=== PATIENT | male | born 1965 | race Caucasian/White ===

== ENCOUNTER 2020-02-15 12:42 | Inpatient (IN) ==
[2020-02-15] MEDS ORDERED: 0.9 % Sodium Chloride 1,000 ML IVC ONE (13:11)
[2020-02-15] MEDS ORDERED: Dexamethasone 4 MG/ML VIAL IVP ONE (13:11)
[2020-02-15 13:30] LABS: Hematocrit 45.1 % (37.5-50.1); Hemoglobin 15.1 g/dL (12.9-16.9); Mean Corpuscular HGB Conc 33.5 g/dL (31.6-35.5); Mean Corpuscular Hemoglobin 29.5 pg (28.0-33.3); Mean Corpuscular Volume 88.3 fL (83.0-100.0); Platelet Count 249 K/mcL (140-400); Red Blood Count 5.11 M/mcL (4.19-5.50); Red Cell Distribution Width 13.1 % (11.5-14.5); White Blood Count 4.5 K/mcL (4.3-11.1)
[2020-02-15] MEDS ORDERED: cefTRIAXone 1,000 MG in Water for inj. (sterile) 10 ML IVP ONE (13:34)
[2020-02-15 13:49] LABS: BUN/Creatinine Ratio 9 (6-26); Blood Urea Nitrogen 7 mg/dL (6-20); Calcium 8.9 mg/dL (8.6-10.3); Carbon Dioxide 26 mEq/L (23-29); Chloride 98 mEq/L (98-107); Glucose 147 mg/dL (70-105); Osmolality,Calculated 281 (280-300); Potassium 3.3 mEq/L (3.5-5.1); Sodium 135 mEq/L (136-145); eGFR For African Americans > 60 (> 60); eGFR For Non-African Americans > 60 (> 60)
[2020-02-15] MEDS ORDERED: Azithromycin 500 MG in 0.9 % Sodium Chloride 250 ML IVPB ONE (14:00)
[2020-02-15 14:08] LABS: Lymphocytes # 0.8 K/mcL (0.6-4.6); Monocytes # 0.4 K/mcL (0.0-1.3); Neutrophils # 3.3 K/mcL (1.6-8.9)
[2020-02-15 14:09] LABS: Large Platelets Present (Not Present); Platelet Estimate Normal (Normal)
[2020-02-15] MEDS ORDERED: Naloxone 0.4 MG/ML INJ IVP PRN (14:39)
[2020-02-15] MEDS ORDERED: Ondansetron 4 MG/2 ML VIAL IVP PRN (14:39)
[2020-02-15 16:03] LABS: C-Reactive Protein 177 mg/L (Less than 10); Lactate Dehydrogenase 525 Units/L (140-271)
[2020-02-15 16:36] LABS: Ferritin > 1500 ng/mL (20-250)
[2020-02-16 05:26] LABS: Basophils % 0.3 %; Hematocrit 43.2 % (37.5-50.1); Hemoglobin 14.8 g/dL (12.9-16.9); Immature Granulocytes % 1.7 % (0-4); Lymphocytes # 0.7 K/mcL (0.6-4.6); Lymphocytes % 11.7 %; Mean Corpuscular HGB Conc 34.3 g/dL (31.6-35.5); Mean Corpuscular Hemoglobin 30.3 pg (28.0-33.3); Mean Corpuscular Volume 88.5 fL (83.0-100.0); Monocytes # 0.2 K/mcL (0.0-1.3); Monocytes % 4.1 %; Platelet Count 269 K/mcL (140-400); Red Blood Count 4.88 M/mcL (4.19-5.50); Red Cell Distribution Width 13.2 % (11.5-14.5); Segmented Neutrophils % 82.2 %; White Blood Count 5.9 K/mcL (4.3-11.1)
[2020-02-16 05:27] LABS: Neutrophils # 4.9 K/mcL (1.6-8.9)
[2020-02-16 05:40] LABS: BUN/Creatinine Ratio 13 (6-26); Blood Urea Nitrogen 8 mg/dL (6-20); Calcium 8.3 mg/dL (8.6-10.3); Carbon Dioxide 22 mEq/L (23-29); Chloride 101 mEq/L (98-107); Glucose 139 mg/dL (70-105); Osmolality,Calculated 281 (280-300); Potassium 3.7 mEq/L (3.5-5.1); Sodium 135 mEq/L (136-145); eGFR For African Americans > 60 (> 60); eGFR For Non-African Americans > 60 (> 60)
[2020-02-16 05:58] LABS: Platelet Estimate Normal (Normal)
[2020-02-16] MEDS ORDERED: Dexamethasone 4 MG/ML VIAL IVP SCH (08:00)
[2020-02-16 08:30] LABS: Alanine Aminotransferase 81 Units/L (7-52); Albumin 3.7 g/dL (3.5-5.7); Albumin/Globulin Ratio 1.2 (1.1-2.2); Alkaline Phosphatase 56 Units/L (34-104); Aspartate Amino Transferase 58 Units/L (13-39); Bilirubin,Direct 0.3 mg/dL (0.0-0.2); Bilirubin,Indirect 0.3 mg/dL (0.0-1.0); Bilirubin,Total 0.6 mg/dL (0.3-1.0); Globulin 3.1 g/dL (2.4-3.5); Total Protein 6.8 g/dL (6.4-8.9)
[2020-02-16] MEDS ORDERED: levoFLOXacin 750 MG TABLET PO SCH (09:00)
[2020-02-16] MEDS ORDERED: Furosemide 20 MG/2 ML VIAL IVP SCH (09:00)
[2020-02-16] MEDS ORDERED: *HR* Enoxaparin 40 MG/0.4 ML SYRINGE SQ SCH (12:53)
[2020-02-16] MEDS: cefTRIAXone 2,000 MG in Water for inj. (sterile) 20 ML IVP SCH (15:19)
[2020-02-16] MEDS: Azithromycin 500 MG in 0.9 % Sodium Chloride 250 ML IVPB SCH (15:20)
[2020-02-16] MEDS: Ipratropium 1 PUFF INHALER IH SCH ×4 (16:09→23:36)
[2020-02-16] MEDS ORDERED: Remdesivir 200 MG in 0.9 % Sodium Chloride 100 ML IVPB ONE (17:00)
[2020-02-16] MEDS: Furosemide 40 MG/4 ML VIAL IVP SCH (20:20)
[2020-02-17] MEDS: Ipratropium 1 PUFF INHALER IH SCH ×7 (03:26→23:58)
[2020-02-17 05:04] LABS: Basophils % 0.4 %; Hematocrit 42.4 % (37.5-50.1); Hemoglobin 14.1 g/dL (12.9-16.9); Immature Granulocytes % 1.9 % (0-4); Mean Corpuscular HGB Conc 33.3 g/dL (31.6-35.5); Mean Corpuscular Hemoglobin 28.9 pg (28.0-33.3); Mean Corpuscular Volume 86.9 fL (83.0-100.0); Mean Platelet Volume 9.6 fL (9.4-12.4); Monocytes # 0.3 K/mcL (0.0-1.3); Monocytes % 3.6 %; Platelet Count 312 K/mcL (140-400); Red Blood Count 4.88 M/mcL (4.19-5.50); Red Cell Distribution Width 13.2 % (11.5-14.5); Segmented Neutrophils % 81.1 %; White Blood Count 7.6 K/mcL (4.3-11.1)
[2020-02-17 05:24] LABS: Alanine Aminotransferase 118 Units/L (7-52); Albumin 3.5 g/dL (3.5-5.7); Albumin/Globulin Ratio 1.1 (1.1-2.2); Alkaline Phosphatase 56 Units/L (34-104); Aspartate Amino Transferase 61 Units/L (13-39); BUN/Creatinine Ratio 16 (6-26); Bilirubin,Total 0.7 mg/dL (0.3-1.0); Blood Urea Nitrogen 12 mg/dL (6-20); Calcium 8.4 mg/dL (8.6-10.3); Carbon Dioxide 24 mEq/L (23-29); Chloride 99 mEq/L (98-107); Globulin 3.3 g/dL (2.4-3.5); Glucose 134 mg/dL (70-105); Osmolality,Calculated 284 (280-300); Potassium 3.2 mEq/L (3.5-5.1); Sodium 136 mEq/L (136-145); Total Protein 6.8 g/dL (6.4-8.9); eGFR For African Americans > 60 (> 60); eGFR For Non-African Americans > 60 (> 60)
[2020-02-17 05:35] LABS: INR 1.1; Prothrombin Time 13.2 Seconds (9.4-12.1)
[2020-02-17 05:44] LABS: Neutrophils # 6.2 K/mcL (1.6-8.9)
[2020-02-17] MEDS: *HR* Enoxaparin 40 MG/0.4 ML SYRINGE SQ SCH ×2 (06:21→16:50)
[2020-02-17 06:44] LABS: Platelet Estimate Normal (Normal)
[2020-02-17] MEDS: Dexamethasone 4 MG/ML VIAL IVP SCH (08:41)
[2020-02-17] MEDS: Furosemide 40 MG/4 ML VIAL IVP SCH (08:42)
[2020-02-17] MEDS: cefTRIAXone 2,000 MG in Water for inj. (sterile) 20 ML IVP SCH (14:36)
[2020-02-17] MEDS: Azithromycin 500 MG in 0.9 % Sodium Chloride 250 ML IVPB SCH (14:37)
[2020-02-17] MEDS: Remdesivir 100 MG in 0.9 % Sodium Chloride 100 ML IVPB SCH (16:51)
[2020-02-17] MEDS: Melatonin 3 MG TABLET PO SCH (20:10)
[2020-02-18 03:11] LABS: ABG Base Excess 0 mEq/L (-2 to 3); ABG HCO3 25 mEq/L (21-27); ABG Oxygen Saturation 89 % (95-98); ABG PCO2 38 mmHg (35-45); ABG PH 7.42 pH Units (7.32-7.45); ABG PO2 55 mmHg (85-104); ABG TCO2 26 mEq/L (20-26); Blood Gas Modality 60LPM
[2020-02-18] MEDS: Ipratropium 1 PUFF INHALER IH SCH ×5 (03:40→20:44)
[2020-02-18] MEDS: *HR* Enoxaparin 40 MG/0.4 ML SYRINGE SQ SCH ×2 (05:31→18:17)
[2020-02-18 06:41] LABS: Basophils # 0.1 K/mcL (0.0-0.2); Basophils % 0.8 %; Hematocrit 40.1 % (37.5-50.1); Hemoglobin 13.5 g/dL (12.9-16.9); Immature Granulocytes % 2.2 % (0-4); Lymphocytes # 1.4 K/mcL (0.6-4.6); Lymphocytes % 16.7 %; Mean Corpuscular HGB Conc 33.7 g/dL (31.6-35.5); Mean Corpuscular Hemoglobin 29.3 pg (28.0-33.3); Mean Corpuscular Volume 87.2 fL (83.0-100.0); Mean Platelet Volume 9.8 fL (9.4-12.4); Monocytes # 0.4 K/mcL (0.0-1.3); Monocytes % 4.7 %; Platelet Count 330 K/mcL (140-400); Red Cell Distribution Width 13.3 % (11.5-14.5); Segmented Neutrophils % 75.6 %; White Blood Count 8.3 K/mcL (4.3-11.1)
[2020-02-18 06:47] LABS: Neutrophils # 6.3 K/mcL (1.6-8.9)
[2020-02-18 06:53] LABS: INR 1.2; Prothrombin Time 13.5 Seconds (9.4-12.1)
[2020-02-18 07:15] LABS: Platelet Estimate Normal (Normal); Reactive Lymphocytes Present (Not Present)
[2020-02-18 07:28] LABS: Alanine Aminotransferase 101 Units/L (7-52); Albumin 3.4 g/dL (3.5-5.7); Alkaline Phosphatase 54 Units/L (34-104); Aspartate Amino Transferase 34 Units/L (13-39); BUN/Creatinine Ratio 19 (6-26); Bilirubin,Total 0.6 mg/dL (0.3-1.0); Blood Urea Nitrogen 13 mg/dL (6-20); Calcium 8.7 mg/dL (8.6-10.3); Carbon Dioxide 27 mEq/L (23-29); Chloride 99 mEq/L (98-107); Globulin 3.3 g/dL (2.4-3.5); Glucose 152 mg/dL (70-105); Osmolality,Calculated 285 (280-300); Potassium 3.5 mEq/L (3.5-5.1); Sodium 136 mEq/L (136-145); Total Protein 6.7 g/dL (6.4-8.9); eGFR For African Americans > 60 (> 60); eGFR For Non-African Americans > 60 (> 60)
[2020-02-18] MEDS: Furosemide 40 MG/4 ML VIAL IVP SCH (07:37)
[2020-02-18] MEDS: Dexamethasone 4 MG/ML VIAL IVP SCH (07:38)
[2020-02-18] MEDS: ALPRAZolam 0.25 MG TABLET PO PRN ×2 (09:00→20:11)
[2020-02-18] MEDS: cefTRIAXone 2,000 MG in Water for inj. (sterile) 20 ML IVP SCH (15:05)
[2020-02-18] MEDS: Azithromycin 500 MG in 0.9 % Sodium Chloride 250 ML IVPB SCH (15:06)
[2020-02-18] MEDS: Remdesivir 100 MG in 0.9 % Sodium Chloride 100 ML IVPB SCH (17:03)
[2020-02-18] MEDS: Melatonin 3 MG TABLET PO SCH (20:12)
[2020-02-19] MEDS: Ipratropium 1 PUFF INHALER IH SCH ×7 (00:57→23:35)
[2020-02-19 01:04] LABS: ABG Base Excess 1 mEq/L (-2 to 3); ABG HCO3 24 mEq/L (21-27); ABG Oxygen Saturation 92 % (95-98); ABG PCO2 34 mmHg (35-45); ABG PH 7.46 pH Units (7.32-7.45); ABG PO2 60 mmHg (85-104); ABG TCO2 25 mEq/L (20-26); Blood Gas Modality BiLevel
[2020-02-19 02:51] LABS: Hematocrit 41.5 % (37.5-50.1); Hemoglobin 14.1 g/dL (12.9-16.9); Lymphocytes # 1.4 K/mcL (0.6-4.6); Mean Corpuscular Volume 88.3 fL (83.0-100.0); Mean Platelet Volume 9.8 fL (9.4-12.4); Monocytes # 0.4 K/mcL (0.0-1.3); Platelet Count 382 K/mcL (140-400); Red Cell Distribution Width 13.2 % (11.5-14.5); White Blood Count 10.2 K/mcL (4.3-11.1)
[2020-02-19 02:52] LABS: INR 1.1; Prothrombin Time 13.1 Seconds (9.4-12.1)
[2020-02-19 03:03] LABS: Alanine Aminotransferase 92 Units/L (7-52); Albumin 3.4 g/dL (3.5-5.7); Alkaline Phosphatase 61 Units/L (34-104); Aspartate Amino Transferase 26 Units/L (13-39); BUN/Creatinine Ratio 24 (6-26); Bilirubin,Total 0.7 mg/dL (0.3-1.0); Blood Urea Nitrogen 15 mg/dL (6-20); Calcium 8.4 mg/dL (8.6-10.3); Carbon Dioxide 24 mEq/L (23-29); Chloride 99 mEq/L (98-107); Globulin 3.3 g/dL (2.4-3.5); Glucose 176 mg/dL (70-105); Osmolality,Calculated 283 (280-300); Potassium 3.7 mEq/L (3.5-5.1); Sodium 134 mEq/L (136-145); Total Protein 6.7 g/dL (6.4-8.9); eGFR For African Americans > 60 (> 60); eGFR For Non-African Americans > 60 (> 60)
[2020-02-19 04:06] LABS: Neutrophils # 8.2 K/mcL (1.6-8.9); Platelet Estimate Normal (Normal); Reactive Lymphocytes Present (Not Present); Smudge Cells Present (Not Present)
[2020-02-19] MEDS: *HR* Enoxaparin 40 MG/0.4 ML SYRINGE SQ SCH ×2 (05:44→17:32)
[2020-02-19] MEDS ORDERED: Dexamethasone Sodium Phos/PF 10 MG/ML VIAL IVP ONE (07:44)
[2020-02-19] MEDS: Furosemide 40 MG/4 ML VIAL IVP SCH (08:46)
[2020-02-19] MEDS: Fluticasone Propionate Nasal 50 MCG/SPRAY BOTTLE NS SCH (11:15)
[2020-02-19] MEDS: cefTRIAXone 2,000 MG in Water for inj. (sterile) 20 ML IVP SCH (13:27)
[2020-02-19] MEDS: Azithromycin 500 MG in 0.9 % Sodium Chloride 250 ML IVPB SCH (13:27)
[2020-02-19] MEDS: Remdesivir 100 MG in 0.9 % Sodium Chloride 100 ML IVPB SCH (17:31)
[2020-02-19] MEDS: Melatonin 3 MG TABLET PO SCH ×2 (20:18→20:28)
[2020-02-20] MEDS ORDERED: Menthol 9.1 MG LOZENGE PO PRN (00:28)
[2020-02-20] MEDS ORDERED: Haloperidol Lactate 5 MG/ML VIAL IVP ONE (01:09)
[2020-02-20] MEDS ORDERED: *HR* LORazepam 2 MG/ML VIAL IVP ONE (02:30)
[2020-02-20] MEDS: Ipratropium 1 PUFF INHALER IH SCH ×5 (03:22→19:55)
[2020-02-20] MEDS ORDERED: *HR* LORazepam 2 MG/ML VIAL IVP STA (04:34)
[2020-02-20] MEDS: Dexmedetomidine HCl 400 MCG/100 ML MLS IVC SCH (06:19)
[2020-02-20] MEDS: *HR* Enoxaparin 40 MG/0.4 ML SYRINGE SQ SCH (06:20)
[2020-02-20] MEDS: Fluticasone Propionate Nasal 50 MCG/SPRAY BOTTLE NS SCH (09:10)
[2020-02-20] MEDS: Dexamethasone Sodium Phos/PF 10 MG/ML VIAL IVP SCH (09:10)
[2020-02-20] MEDS: Furosemide 40 MG/4 ML VIAL IVP SCH (09:10)
[2020-02-20 10:20] LABS: Basophils # 0.1 K/mcL (0.0-0.2); Basophils % 0.5 %; Hematocrit 40.4 % (37.5-50.1); Hemoglobin 13.7 g/dL (12.9-16.9); Immature Granulocytes % 3.9 % (0-4); Lymphocytes # 1.3 K/mcL (0.6-4.6); Lymphocytes % 11.8 %; Mean Corpuscular HGB Conc 33.9 g/dL (31.6-35.5); Mean Corpuscular Hemoglobin 29.5 pg (28.0-33.3); Mean Corpuscular Volume 87.1 fL (83.0-100.0); Mean Platelet Volume 9.8 fL (9.4-12.4); Monocytes # 0.2 K/mcL (0.0-1.3); Monocytes % 1.6 %; Neutrophils # 8.9 K/mcL (1.6-8.9); Platelet Count 323 K/mcL (140-400); Red Blood Count 4.64 M/mcL (4.19-5.50); Red Cell Distribution Width 13.2 % (11.5-14.5); Segmented Neutrophils % 82.2 %; White Blood Count 10.8 K/mcL (4.3-11.1)
[2020-02-20 10:45] LABS: Alanine Aminotransferase 78 Units/L (7-52); Albumin 3.4 g/dL (3.5-5.7); Albumin/Globulin Ratio 0.9 (1.1-2.2); Alkaline Phosphatase 55 Units/L (34-104); Aspartate Amino Transferase 23 Units/L (13-39); BUN/Creatinine Ratio 23 (6-26); Bilirubin,Total 0.7 mg/dL (0.3-1.0); Blood Urea Nitrogen 14 mg/dL (6-20); Calcium 8.8 mg/dL (8.6-10.3); Carbon Dioxide 27 mEq/L (23-29); Chloride 99 mEq/L (98-107); Globulin 3.6 g/dL (2.4-3.5); Glucose 184 mg/dL (70-105); Osmolality,Calculated 285 (280-300); Potassium 3.6 mEq/L (3.5-5.1); Sodium 135 mEq/L (136-145); eGFR For African Americans > 60 (> 60); eGFR For Non-African Americans > 60 (> 60)
[2020-02-20] MEDS: cefTRIAXone 2,000 MG in Water for inj. (sterile) 20 ML IVP SCH (14:40)
[2020-02-20] MEDS ORDERED: Heparin 25,000UNIT/250ML 1/2NS 25,000 UNIT/250 ML IV.SOLN IVC SCH (15:00)
[2020-02-20] MEDS ORDERED: *HR* Heparin 5,000 UNIT/ML VIAL IVP PRN ×2 (15:00)
[2020-02-20] MEDS ORDERED: Haloperidol Lactate 5 MG/ML VIAL IM PRN (17:41)
[2020-02-20] MEDS: *HR* Enoxaparin 150 MG/ML SYRINGE SQ SCH (18:24)
[2020-02-20] MEDS: Remdesivir 100 MG in 0.9 % Sodium Chloride 100 ML IVPB SCH (18:24)
[2020-02-20] MEDS: Melatonin 3 MG TABLET PO SCH (20:37)
[2020-02-20] MEDS ORDERED: QUEtiapine Fumarate 25 MG TABLET PO SCH (21:00)
[2020-02-21] MEDS: Ipratropium 1 PUFF INHALER IH SCH ×7 (00:35→23:28)
[2020-02-21] MEDS ORDERED: *HR* LORazepam 2 MG/ML VIAL IVP ONE (00:50)
[2020-02-21 05:06] LABS: Basophils # 0.1 K/mcL (0.0-0.2); Basophils % 0.5 %; Eosinophils % 0.1 %; Hematocrit 39.8 % (37.5-50.1); Hemoglobin 13.7 g/dL (12.9-16.9); INR 1.3; Immature Granulocytes % 3.7 % (0-4); Lymphocytes # 1.2 K/mcL (0.6-4.6); Lymphocytes % 10.1 %; Mean Corpuscular HGB Conc 34.4 g/dL (31.6-35.5); Mean Corpuscular Hemoglobin 30.4 pg (28.0-33.3); Mean Corpuscular Volume 88.2 fL (83.0-100.0); Mean Platelet Volume 10.2 fL (9.4-12.4); Monocytes # 0.2 K/mcL (0.0-1.3); Neutrophils # 10.3 K/mcL (1.6-8.9); Platelet Count 313 K/mcL (140-400); Prothrombin Time 14.9 Seconds (9.4-12.1); Red Blood Count 4.51 M/mcL (4.19-5.50); Red Cell Distribution Width 12.9 % (11.5-14.5); Segmented Neutrophils % 83.6 %; White Blood Count 12.3 K/mcL (4.3-11.1)
[2020-02-21 05:15] LABS: Alanine Aminotransferase 68 Units/L (7-52); Albumin 3.2 g/dL (3.5-5.7); Albumin/Globulin Ratio 0.9 (1.1-2.2); Alkaline Phosphatase 59 Units/L (34-104); Aspartate Amino Transferase 22 Units/L (13-39); BUN/Creatinine Ratio 26 (6-26); Bilirubin,Total 0.7 mg/dL (0.3-1.0); Blood Urea Nitrogen 17 mg/dL (6-20); Calcium 8.1 mg/dL (8.6-10.3); Carbon Dioxide 26 mEq/L (23-29); Chloride 97 mEq/L (98-107); Globulin 3.6 g/dL (2.4-3.5); Glucose 182 mg/dL (70-105); Osmolality,Calculated 282 (280-300); Potassium 3.7 mEq/L (3.5-5.1); Sodium 133 mEq/L (136-145); Total Protein 6.8 g/dL (6.4-8.9); eGFR For African Americans > 60 (> 60); eGFR For Non-African Americans > 60 (> 60)
[2020-02-21] MEDS: *HR* Enoxaparin 150 MG/ML SYRINGE SQ SCH ×2 (06:40→17:12)
[2020-02-21] MEDS: Dexmedetomidine HCl 400 MCG/100 ML MLS IVC SCH (07:46)
[2020-02-21] MEDS: Cholecalciferol (D-3) 1,000 UNIT (25MCG) TABLET PO SCH (08:08)
[2020-02-21] MEDS: Fluticasone Propionate Nasal 50 MCG/SPRAY BOTTLE NS SCH (08:09)
[2020-02-21] MEDS: Dexamethasone Sodium Phos/PF 10 MG/ML VIAL IVP SCH (08:09)
[2020-02-21] MEDS: Furosemide 40 MG/4 ML VIAL IVP SCH ×2 (08:09→17:12)
[2020-02-21] MEDS ORDERED: Haloperidol Lactate 5 MG/ML VIAL IM ONE (08:42)
[2020-02-21] MEDS: cefTRIAXone 2,000 MG in Water for inj. (sterile) 20 ML IVP SCH (17:11)
[2020-02-21] MEDS: Remdesivir 100 MG in 0.9 % Sodium Chloride 100 ML IVPB SCH (17:13)
[2020-02-21] MEDS: Haloperidol Lactate 5 MG/ML VIAL IM PRN (20:37)
[2020-02-21] MEDS: QUEtiapine Fumarate 25 MG TABLET PO SCH (20:37)
[2020-02-21] MEDS: Melatonin 3 MG TABLET PO SCH (20:37)
[2020-02-22] MEDS: Ipratropium 1 PUFF INHALER IH SCH ×6 (04:30→23:38)
[2020-02-22] MEDS: *HR* Enoxaparin 150 MG/ML SYRINGE SQ SCH ×2 (05:52→17:04)
[2020-02-22 06:26] LABS: Basophils % 0.4 %; Eosinophils % 0.2 %; Hematocrit 36.9 % (37.5-50.1); Hemoglobin 12.7 g/dL (12.9-16.9); Immature Granulocytes % 3.1 % (0-4); Lymphocytes # 1.1 K/mcL (0.6-4.6); Lymphocytes % 10.1 %; Mean Corpuscular HGB Conc 34.4 g/dL (31.6-35.5); Mean Corpuscular Hemoglobin 29.6 pg (28.0-33.3); Monocytes # 0.2 K/mcL (0.0-1.3); Monocytes % 1.7 %; Neutrophils # 9.3 K/mcL (1.6-8.9); Platelet Count 316 K/mcL (140-400); Red Blood Count 4.29 M/mcL (4.19-5.50); Red Cell Distribution Width 13.2 % (11.5-14.5); Segmented Neutrophils % 84.5 %
[2020-02-22 06:31] LABS: INR 1.3; Prothrombin Time 14.4 Seconds (9.4-12.1)
[2020-02-22 06:38] LABS: Alanine Aminotransferase 46 Units/L (7-52); Albumin 3.1 g/dL (3.5-5.7); Albumin/Globulin Ratio 0.9 (1.1-2.2); Alkaline Phosphatase 66 Units/L (34-104); Aspartate Amino Transferase 14 Units/L (13-39); BUN/Creatinine Ratio 25 (6-26); Bilirubin,Total 0.7 mg/dL (0.3-1.0); Blood Urea Nitrogen 17 mg/dL (6-20); Calcium 8.4 mg/dL (8.6-10.3); Carbon Dioxide 25 mEq/L (23-29); Chloride 97 mEq/L (98-107); Globulin 3.4 g/dL (2.4-3.5); Glucose 300 mg/dL (70-105); Osmolality,Calculated 285 (280-300); Potassium 3.4 mEq/L (3.5-5.1); Sodium 131 mEq/L (136-145); Total Protein 6.5 g/dL (6.4-8.9); eGFR For African Americans > 60 (> 60); eGFR For Non-African Americans > 60 (> 60)
[2020-02-22] MEDS: Dexmedetomidine HCl 400 MCG/100 ML MLS IVC SCH ×2 (07:34→07:35)
[2020-02-22] MEDS: Cholecalciferol (D-3) 1,000 UNIT (25MCG) TABLET PO SCH (08:09)
[2020-02-22] MEDS: Furosemide 40 MG/4 ML VIAL IVP SCH (08:09)
[2020-02-22] MEDS: Dexamethasone Sodium Phos/PF 10 MG/ML VIAL IVP SCH (08:09)
[2020-02-22] MEDS: Fluticasone Propionate Nasal 50 MCG/SPRAY BOTTLE NS SCH (08:11)
[2020-02-22] MEDS: cefTRIAXone 2,000 MG in Water for inj. (sterile) 20 ML IVP SCH (13:11)
[2020-02-22] MEDS: Remdesivir 100 MG in 0.9 % Sodium Chloride 100 ML IVPB SCH (17:03)
[2020-02-22] MEDS ORDERED: hydrOXYzine pamoate 25 MG CAPSULE PO PRN (19:44)
[2020-02-22] MEDS: Melatonin 3 MG TABLET PO SCH (20:37)
[2020-02-22] MEDS: QUEtiapine Fumarate 25 MG TABLET PO SCH (20:38)
[2020-02-23] MEDS: Ipratropium 1 PUFF INHALER IH SCH ×6 (03:49→23:50)
[2020-02-23] MEDS: *HR* Enoxaparin 150 MG/ML SYRINGE SQ SCH (05:51)
[2020-02-23 06:47] LABS: Basophils # 0.1 K/mcL (0.0-0.2); Basophils % 0.5 %; Eosinophils % 0.3 %; Hematocrit 40.4 % (37.5-50.1); Hemoglobin 13.8 g/dL (12.9-16.9); Immature Granulocytes % 3.3 % (0-4); Lymphocytes # 1.3 K/mcL (0.6-4.6); Lymphocytes % 10.2 %; Mean Corpuscular HGB Conc 34.2 g/dL (31.6-35.5); Mean Corpuscular Hemoglobin 29.2 pg (28.0-33.3); Mean Corpuscular Volume 85.4 fL (83.0-100.0); Mean Platelet Volume 10.2 fL (9.4-12.4); Monocytes # 0.2 K/mcL (0.0-1.3); Monocytes % 1.8 %; Neutrophils # 10.9 K/mcL (1.6-8.9); Platelet Count 405 K/mcL (140-400); Red Blood Count 4.73 M/mcL (4.19-5.50); Red Cell Distribution Width 13.2 % (11.5-14.5); Segmented Neutrophils % 83.9 %
[2020-02-23 06:48] LABS: INR 1.2; Prothrombin Time 13.5 Seconds (9.4-12.1)
[2020-02-23 07:37] LABS: Alanine Aminotransferase 44 Units/L (7-52); Albumin 3.3 g/dL (3.5-5.7); Albumin/Globulin Ratio 0.9 (1.1-2.2); Alkaline Phosphatase 60 Units/L (34-104); Aspartate Amino Transferase 13 Units/L (13-39); BUN/Creatinine Ratio 26 (6-26); Bilirubin,Total 0.7 mg/dL (0.3-1.0); Blood Urea Nitrogen 15 mg/dL (6-20); Calcium 8.8 mg/dL (8.6-10.3); Carbon Dioxide 23 mEq/L (23-29); Chloride 98 mEq/L (98-107); Globulin 3.8 g/dL (2.4-3.5); Glucose 189 mg/dL (70-105); Osmolality,Calculated 276 (280-300); Potassium 4.3 mEq/L (3.5-5.1); Sodium 130 mEq/L (136-145); Total Protein 7.1 g/dL (6.4-8.9); eGFR For African Americans > 60 (> 60); eGFR For Non-African Americans > 60 (> 60)
[2020-02-23] MEDS: Cholecalciferol (D-3) 1,000 UNIT (25MCG) TABLET PO SCH (07:55)
[2020-02-23] MEDS: Dexamethasone Sodium Phos/PF 10 MG/ML VIAL IVP SCH (07:55)
[2020-02-23] MEDS: Fluticasone Propionate Nasal 50 MCG/SPRAY BOTTLE NS SCH (08:01)
[2020-02-23] MEDS: Dexmedetomidine HCl 400 MCG/100 ML MLS IVC SCH ×2 (11:17→21:30)
[2020-02-23] MEDS: cefTRIAXone 2,000 MG in Water for inj. (sterile) 20 ML IVP SCH (15:08)
[2020-02-23] MEDS: Furosemide 40 MG/4 ML VIAL IVP SCH ×2 (16:00→21:12)
[2020-02-23] MEDS: Remdesivir 100 MG in 0.9 % Sodium Chloride 100 ML IVPB SCH (17:18)
[2020-02-23] MEDS ORDERED: *HR* Heparin 5,000 UNIT/ML VIAL IVP PRN ×2 (18:00)
[2020-02-23 19:43] LABS: Heparin anti-factor XA UFH 0.7 IU/mL (0.30-0.70)
[2020-02-23] MEDS: Melatonin 3 MG TABLET PO SCH (21:11)
[2020-02-23] MEDS: QUEtiapine Fumarate 25 MG TABLET PO SCH (21:11)
[2020-02-23] MEDS: Heparin 25,000UNIT/250ML 1/2NS 25,000 UNIT/250 ML IV.SOLN IVC SCH (21:15)
[2020-02-24] MEDS: Ipratropium 1 PUFF INHALER IH SCH ×5 (03:54→20:09)
[2020-02-24 04:02] LABS: Basophils # 0.1 K/mcL (0.0-0.2); Basophils % 0.4 %; Eosinophils % 0.1 %; Hematocrit 40.5 % (37.5-50.1); Hemoglobin 13.8 g/dL (12.9-16.9); INR 1.2; Immature Granulocytes % 4.5 % (0-4); Lymphocytes # 1.1 K/mcL (0.6-4.6); Lymphocytes % 7.9 %; Mean Corpuscular HGB Conc 34.1 g/dL (31.6-35.5); Mean Corpuscular Hemoglobin 29.4 pg (28.0-33.3); Mean Corpuscular Volume 86.2 fL (83.0-100.0); Mean Platelet Volume 10.1 fL (9.4-12.4); Monocytes # 0.3 K/mcL (0.0-1.3); Monocytes % 2.1 %; Neutrophils # 11.8 K/mcL (1.6-8.9); Platelet Count 351 K/mcL (140-400); Prothrombin Time 13.9 Seconds (9.4-12.1); Red Cell Distribution Width 13.2 % (11.5-14.5); White Blood Count 13.9 K/mcL (4.3-11.1)
[2020-02-24 04:14] LABS: Alanine Aminotransferase 34 Units/L (7-52); Albumin 3.3 g/dL (3.5-5.7); Albumin/Globulin Ratio 0.9 (1.1-2.2); Alkaline Phosphatase 62 Units/L (34-104); Aspartate Amino Transferase 13 Units/L (13-39); BUN/Creatinine Ratio 30 (6-26); Bilirubin,Total 0.6 mg/dL (0.3-1.0); Blood Urea Nitrogen 21 mg/dL (6-20); Calcium 8.7 mg/dL (8.6-10.3); Carbon Dioxide 25 mEq/L (23-29); Chloride 96 mEq/L (98-107); Globulin 3.5 g/dL (2.4-3.5); Glucose 238 mg/dL (70-105); Magnesium 2.1 mg/dL (1.6-2.6); Osmolality,Calculated 283 (280-300); Sodium 131 mEq/L (136-145); Total Protein 6.8 g/dL (6.4-8.9); eGFR For African Americans > 60 (> 60); eGFR For Non-African Americans > 60 (> 60)
[2020-02-24 04:36] LABS: Heparin anti-factor XA UFH 1.27 IU/mL (0.30-0.70)
[2020-02-24] MEDS: Fluticasone Propionate Nasal 50 MCG/SPRAY BOTTLE NS SCH (10:37)
[2020-02-24] MEDS: Dexamethasone Sodium Phos/PF 10 MG/ML VIAL IVP SCH (10:37)
[2020-02-24] MEDS: Furosemide 40 MG/4 ML VIAL IVP SCH ×2 (10:37→21:21)
[2020-02-24] MEDS: Cholecalciferol (D-3) 1,000 UNIT (25MCG) TABLET PO SCH (10:37)
[2020-02-24] MEDS: cefTRIAXone 2,000 MG in Water for inj. (sterile) 20 ML IVP SCH (13:08)
[2020-02-24] MEDS: Dexmedetomidine HCl 400 MCG/100 ML MLS IVC SCH (13:09)
[2020-02-24] MEDS: Heparin 25,000UNIT/250ML 1/2NS 25,000 UNIT/250 ML IV.SOLN IVC SCH ×2 (13:37→20:49)
[2020-02-24] MEDS: Remdesivir 100 MG in 0.9 % Sodium Chloride 100 ML IVPB SCH (18:17)
[2020-02-24] MEDS: QUEtiapine Fumarate 25 MG TABLET PO SCH (21:21)
[2020-02-24] MEDS: Melatonin 3 MG TABLET PO SCH (21:22)
[2020-02-25] MEDS: Ipratropium 1 PUFF INHALER IH SCH ×7 (00:02→23:16)
[2020-02-25] MEDS: Dexmedetomidine HCl 400 MCG/100 ML MLS IVC SCH ×3 (04:28→23:45)
[2020-02-25 05:24] LABS: Basophils # 0.1 K/mcL (0.0-0.2); Basophils % 0.4 %; Hematocrit 40.8 % (37.5-50.1); Hemoglobin 13.7 g/dL (12.9-16.9); Immature Granulocytes % 3.8 % (0-4); Lymphocytes # 0.9 K/mcL (0.6-4.6); Lymphocytes % 7.9 %; Mean Corpuscular HGB Conc 33.6 g/dL (31.6-35.5); Mean Corpuscular Hemoglobin 29.4 pg (28.0-33.3); Mean Corpuscular Volume 87.6 fL (83.0-100.0); Mean Platelet Volume 10.3 fL (9.4-12.4); Monocytes # 0.3 K/mcL (0.0-1.3); Monocytes % 2.4 %; Platelet Count 300 K/mcL (140-400); Red Blood Count 4.66 M/mcL (4.19-5.50); Red Cell Distribution Width 13.2 % (11.5-14.5); Segmented Neutrophils % 85.5 %; White Blood Count 11.7 K/mcL (4.3-11.1)
[2020-02-25 05:29] LABS: INR 1.2; Prothrombin Time 13.8 Seconds (9.4-12.1)
[2020-02-25 05:46] LABS: Alanine Aminotransferase 43 Units/L (7-52); Albumin 3.1 g/dL (3.5-5.7); Albumin/Globulin Ratio 0.8 (1.1-2.2); Alkaline Phosphatase 54 Units/L (34-104); Aspartate Amino Transferase 14 Units/L (13-39); BUN/Creatinine Ratio 32 (6-26); Bilirubin,Total 0.7 mg/dL (0.3-1.0); Blood Urea Nitrogen 19 mg/dL (6-20); Calcium 8.4 mg/dL (8.6-10.3); Carbon Dioxide 28 mEq/L (23-29); Chloride 97 mEq/L (98-107); Globulin 3.7 g/dL (2.4-3.5); Glucose 210 mg/dL (70-105); Osmolality,Calculated 284 (280-300); Sodium 133 mEq/L (136-145); Total Protein 6.8 g/dL (6.4-8.9); eGFR For African Americans > 60 (> 60); eGFR For Non-African Americans > 60 (> 60)
[2020-02-25] MEDS: Cholecalciferol (D-3) 1,000 UNIT (25MCG) TABLET PO SCH (07:51)
[2020-02-25] MEDS: Furosemide 40 MG/4 ML VIAL IVP SCH ×2 (07:51→21:00)
[2020-02-25] MEDS: Dexamethasone Sodium Phos/PF 10 MG/ML VIAL IVP SCH (07:51)
[2020-02-25] MEDS: Fluticasone Propionate Nasal 50 MCG/SPRAY BOTTLE NS SCH (07:51)
[2020-02-25] MEDS: Heparin 25,000UNIT/250ML 1/2NS 25,000 UNIT/250 ML IV.SOLN IVC SCH (13:19)
[2020-02-25] MEDS: Remdesivir 100 MG in 0.9 % Sodium Chloride 100 ML IVPB SCH (17:18)
[2020-02-25] MEDS: Melatonin 3 MG TABLET PO SCH (21:00)
[2020-02-25] MEDS: QUEtiapine Fumarate 25 MG TABLET PO SCH (21:00)
[2020-02-26] MEDS: Ipratropium 1 PUFF INHALER IH SCH ×6 (04:04→23:51)
[2020-02-26 06:11] LABS: Basophils # 0.1 K/mcL (0.0-0.2); Basophils % 0.7 %; Eosinophils % 0.1 %; Hematocrit 43.3 % (37.5-50.1); Hemoglobin 14.3 g/dL (12.9-16.9); Immature Granulocytes % 3.4 % (0-4); Lymphocytes # 1.1 K/mcL (0.6-4.6); Lymphocytes % 8.2 %; Mean Corpuscular Hemoglobin 29.4 pg (28.0-33.3); Mean Corpuscular Volume 88.9 fL (83.0-100.0); Mean Platelet Volume 10.4 fL (9.4-12.4); Monocytes # 0.4 K/mcL (0.0-1.3); Monocytes % 3.2 %; Neutrophils # 10.9 K/mcL (1.6-8.9); Platelet Count 278 K/mcL (140-400); Red Blood Count 4.87 M/mcL (4.19-5.50); Red Cell Distribution Width 13.3 % (11.5-14.5); Segmented Neutrophils % 84.4 %; White Blood Count 12.9 K/mcL (4.3-11.1)
[2020-02-26 06:17] LABS: INR 1.2; Prothrombin Time 13.4 Seconds (9.4-12.1)
[2020-02-26 08:30] LABS: Alanine Aminotransferase 41 Units/L (7-52); Albumin 3.2 g/dL (3.5-5.7); Albumin/Globulin Ratio 0.9 (1.1-2.2); Alkaline Phosphatase 59 Units/L (34-104); Aspartate Amino Transferase 12 Units/L (13-39); BUN/Creatinine Ratio 33 (6-26); Bilirubin,Total 0.8 mg/dL (0.3-1.0); Blood Urea Nitrogen 21 mg/dL (6-20); Calcium 8.9 mg/dL (8.6-10.3); Carbon Dioxide 24 mEq/L (23-29); Chloride 96 mEq/L (98-107); Globulin 3.5 g/dL (2.4-3.5); Glucose 158 mg/dL (70-105); Osmolality,Calculated 280 (280-300); Sodium 132 mEq/L (136-145); Total Protein 6.7 g/dL (6.4-8.9); eGFR For African Americans > 60 (> 60); eGFR For Non-African Americans > 60 (> 60)
[2020-02-26] MEDS: Furosemide 40 MG/4 ML VIAL IVP SCH ×2 (08:50→20:24)
[2020-02-26] MEDS: Dexamethasone Sodium Phos/PF 10 MG/ML VIAL IVP SCH (08:51)
[2020-02-26] MEDS: Fluticasone Propionate Nasal 50 MCG/SPRAY BOTTLE NS SCH (08:51)
[2020-02-26] MEDS: Cholecalciferol (D-3) 1,000 UNIT (25MCG) TABLET PO SCH (08:52)
[2020-02-26] MEDS: Dexmedetomidine HCl 400 MCG/100 ML MLS IVC SCH (13:42)
[2020-02-26] MEDS: Heparin 25,000UNIT/250ML 1/2NS 25,000 UNIT/250 ML IV.SOLN IVC SCH ×2 (13:43→20:20)
[2020-02-26 15:46] LABS: Heparin anti-factor XA UFH 0.32 IU/mL (0.30-0.70)
[2020-02-26 16:03] LABS: C-Reactive Protein 101 mg/L (Less than 10); Lactate Dehydrogenase 395 Units/L (140-271)
[2020-02-26] MEDS ORDERED: *HR* Dextrose 50 % in Water (Vial) 50 ML VIAL IVP PRN (16:15)
[2020-02-26] MEDS ORDERED: D5% in Water 1,000 ML IVC PRN (16:15)
[2020-02-26] MEDS ORDERED: Dextrose Gel 15 GM/37.5 ML TUBE PO PRN ×2 (16:15)
[2020-02-26 16:16] LABS: Ferritin 1430 ng/mL (20-250)
[2020-02-26] MEDS: Insulin LISPRO 300 UNITS/3 ML VIAL SUBQ SCH (17:01)
[2020-02-26] MEDS: Melatonin 3 MG TABLET PO SCH (20:24)
[2020-02-26] MEDS: QUEtiapine Fumarate 25 MG TABLET PO SCH (20:24)
[2020-02-26] MEDS ORDERED: Insulin LISPRO 300 UNITS/3 ML VIAL SUBQ SCH (21:00)
[2020-02-27] MEDS: Ipratropium 1 PUFF INHALER IH SCH ×6 (03:41→23:32)
[2020-02-27] MEDS: Haloperidol Lactate 5 MG/ML VIAL IM PRN (04:25)
[2020-02-27 04:59] LABS: Basophils # 0.1 K/mcL (0.0-0.2); Basophils % 0.6 %; Hematocrit 43.7 % (37.5-50.1); Hemoglobin 15.2 g/dL (12.9-16.9); Lymphocytes # 1.1 K/mcL (0.6-4.6); Lymphocytes % 7.8 %; Mean Corpuscular HGB Conc 34.8 g/dL (31.6-35.5); Mean Corpuscular Hemoglobin 30.2 pg (28.0-33.3); Mean Corpuscular Volume 86.9 fL (83.0-100.0); Mean Platelet Volume 10.4 fL (9.4-12.4); Monocytes # 0.5 K/mcL (0.0-1.3); Monocytes % 3.4 %; Neutrophils # 11.8 K/mcL (1.6-8.9); Platelet Count 312 K/mcL (140-400); Red Blood Count 5.03 M/mcL (4.19-5.50); Red Cell Distribution Width 13.3 % (11.5-14.5); Segmented Neutrophils % 84.2 %; White Blood Count 14.1 K/mcL (4.3-11.1)
[2020-02-27 05:07] LABS: Alanine Aminotransferase 37 Units/L (7-52); Albumin 3.2 g/dL (3.5-5.7); Albumin/Globulin Ratio 0.8 (1.1-2.2); Alkaline Phosphatase 55 Units/L (34-104); Aspartate Amino Transferase 10 Units/L (13-39); BUN/Creatinine Ratio 31 (6-26); Blood Urea Nitrogen 24 mg/dL (6-20); Calcium 8.9 mg/dL (8.6-10.3); Carbon Dioxide 27 mEq/L (23-29); Chloride 94 mEq/L (98-107); Glucose 187 mg/dL (70-105); Magnesium 2.1 mg/dL (1.6-2.6); Osmolality,Calculated 281 (280-300); Potassium 3.8 mEq/L (3.5-5.1); Sodium 131 mEq/L (136-145); Total Protein 7.2 g/dL (6.4-8.9); eGFR For African Americans > 60 (> 60); eGFR For Non-African Americans > 60 (> 60)
[2020-02-27] MEDS ORDERED: Morphine Sulfate 2 MG/ML SYRINGE IVP ONE ×2 (05:16→06:22)
[2020-02-27] MEDS: Dexmedetomidine HCl 400 MCG/100 ML MLS IVC SCH (06:05)
[2020-02-27] MEDS: Heparin 25,000UNIT/250ML 1/2NS 25,000 UNIT/250 ML IV.SOLN IVC SCH ×4 (06:07→23:32)
[2020-02-27] MEDS: FentaNYL (PF) 1,000 MCG/100 ML IV.SOLN IVC SCH ×3 (09:25→19:34)
[2020-02-27] MEDS: Insulin LISPRO 300 UNITS/3 ML VIAL SUBQ SCH ×4 (09:26→23:55)
[2020-02-27] MEDS: Midazolam HCl 50 MG/100 ML IV.SOLN IVC SCH ×3 (09:26→23:00)
[2020-02-27] MEDS: Norepinephrine 4 MG/254 ML IV.SOLN IVC SCH ×2 (09:26→10:57)
[2020-02-27] MEDS: Cholecalciferol (D-3) 1,000 UNIT (25MCG) TABLET PO SCH (09:27)
[2020-02-27] MEDS: Dexamethasone Sodium Phos/PF 10 MG/ML VIAL IVP SCH (09:31)
[2020-02-27] MEDS: Furosemide 40 MG/4 ML VIAL IVP SCH ×2 (09:32→20:19)
[2020-02-27] MEDS: Fluticasone Propionate Nasal 50 MCG/SPRAY BOTTLE NS SCH (10:54)
[2020-02-27 10:58] LABS: ABG Base Excess 1 mEq/L (-2 to 3); ABG HCO3 28 mEq/L (21-27); ABG Oxygen Saturation 91 % (95-98); ABG PCO2 50 mmHg (35-45); ABG PH 7.35 pH Units (7.32-7.45); ABG PO2 65 mmHg (85-104); ABG TCO2 29 mEq/L (20-26); Blood Gas Modality ASSIST CONTROL; Blood Gas VT 500 cc
[2020-02-27] MEDS ORDERED: *HR* Cisatracurium 200 MG/20 ML VIAL IVC SCH (11:15)
[2020-02-27] MEDS: Cisatracurium 200 MG in 0.9 % Sodium Chloride 180 ML IVC SCH ×2 (12:13→20:13)
[2020-02-27] MEDS ORDERED: Artificial Tears SOLN 15 ML BOTTLE BOTH EYES PRN (12:45)
[2020-02-27] MEDS: Chlorhexidine Rinse 15 ML MOUTHWASH MM SCH ×2 (14:13→20:19)
[2020-02-27 14:42] LABS: ABG Base Excess 3 mEq/L (-2 to 3); ABG HCO3 29 mEq/L (21-27); ABG Oxygen Saturation 98 % (95-98); ABG PCO2 53 mmHg (35-45); ABG PH 7.35 pH Units (7.32-7.45); ABG PO2 109 mmHg (85-104); ABG TCO2 31 mEq/L (20-26); Blood Gas Modality AF; Blood Gas VT 500 cc
[2020-02-27] MEDS ORDERED: *HR* Propofol 200 MG/20 ML VIAL IVP ONE (16:26)
[2020-02-27] MEDS ORDERED: *HR* Rocuronium Bromide 100 MG/10 ML VIAL IVP ONE (16:26)
[2020-02-27] MEDS ORDERED: *HR* Midazolam HCl 2 MG/2 ML VIAL IVP ONE (16:26)
[2020-02-27] MEDS ORDERED: *HR* Succinylcholine 200 MG/10 ML VIAL IVP ONE (16:26)
[2020-02-27] MEDS ORDERED: *HR* Midazolam HCl 5 MG/5 ML VIAL IVP ONE (16:26)
[2020-02-27] MEDS ORDERED: Dexamethasone Sodium Phos/PF 10 MG/ML VIAL IVP ONE (16:30)
[2020-02-27] MEDS: Artificial Tears SOLN 15 ML BOTTLE BOTH EYES SCH ×2 (17:26→20:19)
[2020-02-27] MEDS: Melatonin 3 MG TABLET PO SCH (19:34)
[2020-02-27 20:14] LABS: ABG Base Excess 4 mEq/L (-2 to 3); ABG HCO3 31 mEq/L (21-27); ABG Oxygen Saturation 97 % (95-98); ABG PCO2 51 mmHg (35-45); ABG PH 7.38 pH Units (7.32-7.45); ABG PO2 99 mmHg (85-104); ABG TCO2 32 mEq/L (20-26); Blood Gas Modality ASSIST CONTROL; Blood Gas VT 500 cc
[2020-02-27] MEDS: QUEtiapine Fumarate 25 MG TABLET PO SCH (20:19)
[2020-02-28] MEDS: FentaNYL (PF) 2,500 MCG/50 ML IV.SOLN IVC SCH ×3 (00:30→19:33)
[2020-02-28 02:01] LABS: Basophils # 0.1 K/mcL (0.0-0.2); Basophils % 0.6 %; Hematocrit 45.7 % (37.5-50.1); Hemoglobin 14.9 g/dL (12.9-16.9); Immature Granulocytes % 4.1 % (0-4); Lymphocytes # 0.9 K/mcL (0.6-4.6); Lymphocytes % 5.7 %; Mean Corpuscular HGB Conc 32.6 g/dL (31.6-35.5); Mean Corpuscular Hemoglobin 29.3 pg (28.0-33.3); Mean Corpuscular Volume 89.8 fL (83.0-100.0); Mean Platelet Volume 10.8 fL (9.4-12.4); Monocytes # 0.5 K/mcL (0.0-1.3); Neutrophils # 13.6 K/mcL (1.6-8.9); Platelet Count 293 K/mcL (140-400); Red Blood Count 5.09 M/mcL (4.19-5.50); Red Cell Distribution Width 13.7 % (11.5-14.5); Segmented Neutrophils % 86.6 %; White Blood Count 15.8 K/mcL (4.3-11.1)
[2020-02-28 02:20] LABS: Alanine Aminotransferase 36 Units/L (7-52); Albumin 3.3 g/dL (3.5-5.7); Albumin/Globulin Ratio 0.8 (1.1-2.2); Alkaline Phosphatase 60 Units/L (34-104); Aspartate Amino Transferase 10 Units/L (13-39); BUN/Creatinine Ratio 35 (6-26); Bilirubin,Total 0.8 mg/dL (0.3-1.0); Blood Urea Nitrogen 25 mg/dL (6-20); Calcium 9.2 mg/dL (8.6-10.3); Carbon Dioxide 27 mEq/L (23-29); Chloride 98 mEq/L (98-107); Globulin 4.1 g/dL (2.4-3.5); Glucose 186 mg/dL (70-105); Osmolality,Calculated 289 (280-300); Potassium 4.4 mEq/L (3.5-5.1); Sodium 135 mEq/L (136-145); Total Protein 7.4 g/dL (6.4-8.9); eGFR For African Americans > 60 (> 60); eGFR For Non-African Americans > 60 (> 60)
[2020-02-28] MEDS: Ipratropium 1 PUFF INHALER IH SCH ×5 (03:59→20:34)
[2020-02-28 04:22] LABS: Fibrinogen 567 mg/dL (169-393)
[2020-02-28 04:24] LABS: D-Dimer 7491 ng/mLFEU (0-500)
[2020-02-28 04:44] LABS: ABG Base Excess 5 mEq/L (-2 to 3); ABG HCO3 31 mEq/L (21-27); ABG Oxygen Saturation 91 % (95-98); ABG PCO2 51 mmHg (35-45); ABG PH 7.39 pH Units (7.32-7.45); ABG PO2 63 mmHg (85-104); ABG TCO2 33 mEq/L (20-26); Blood Gas Modality ASSIST CONTROL; Blood Gas VT 500 cc
[2020-02-28] MEDS: Insulin LISPRO 300 UNITS/3 ML VIAL SUBQ SCH ×3 (05:12→18:09)
[2020-02-28] MEDS: Chlorhexidine Rinse 15 ML MOUTHWASH MM SCH ×2 (07:58→20:53)
[2020-02-28] MEDS: Pantoprazole 40 MG VIAL IVP SCH (07:58)
[2020-02-28] MEDS: Furosemide 40 MG/4 ML VIAL IVP SCH ×2 (07:58→20:52)
[2020-02-28] MEDS: Cholecalciferol (D-3) 1,000 UNIT (25MCG) TABLET PO SCH (07:58)
[2020-02-28] MEDS: Artificial Tears SOLN 15 ML BOTTLE BOTH EYES SCH ×4 (07:58→20:52)
[2020-02-28] MEDS: Dexamethasone Sodium Phos/PF 10 MG/ML VIAL IVP SCH (07:58)
[2020-02-28] MEDS: Cisatracurium 200 MG in 0.9 % Sodium Chloride 180 ML IVC SCH ×2 (08:45→21:34)
[2020-02-28] MEDS: Midazolam HCl 50 MG/100 ML IV.SOLN IVC SCH ×2 (10:19→19:18)
[2020-02-28] MEDS: Heparin 25,000UNIT/250ML 1/2NS 25,000 UNIT/250 ML IV.SOLN IVC SCH (18:08)
[2020-02-28] MEDS: Melatonin 3 MG TABLET PO SCH (20:53)
[2020-02-28] MEDS ORDERED: Chlorhexidine Rinse 15 ML MOUTHWASH MM SCH (21:00)
[2020-02-29] MEDS: Ipratropium 1 PUFF INHALER IH SCH ×4 (00:19→11:33)
[2020-02-29] MEDS: Insulin LISPRO 300 UNITS/3 ML VIAL SUBQ SCH ×2 (01:35→05:05)
[2020-02-29 04:21] LABS: ABG Base Excess 6 mEq/L (-2 to 3); ABG HCO3 33 mEq/L (21-27); ABG Oxygen Saturation 89 % (95-98); ABG PCO2 55 mmHg (35-45); ABG PH 7.39 pH Units (7.32-7.45); ABG PO2 58 mmHg (85-104); ABG TCO2 35 mEq/L (20-26); Blood Gas VT 500 cc
[2020-02-29 04:52] LABS: Basophils # 0.1 K/mcL (0.0-0.2); Basophils % 0.6 %; Hematocrit 45.4 % (37.5-50.1); Hemoglobin 14.7 g/dL (12.9-16.9); Lymphocytes # 1.4 K/mcL (0.6-4.6); Mean Corpuscular HGB Conc 32.4 g/dL (31.6-35.5); Mean Corpuscular Hemoglobin 30.1 pg (28.0-33.3); Mean Corpuscular Volume 92.8 fL (83.0-100.0); Mean Platelet Volume 10.6 fL (9.4-12.4); Monocytes # 1.5 K/mcL (0.0-1.3); Monocytes % 7.5 %; Neutrophils # 16.6 K/mcL (1.6-8.9); Platelet Count 324 K/mcL (140-400); Red Blood Count 4.89 M/mcL (4.19-5.50); Red Cell Distribution Width 13.9 % (11.5-14.5); Segmented Neutrophils % 80.9 %; White Blood Count 20.5 K/mcL (4.3-11.1)
[2020-02-29 05:11] LABS: Alanine Aminotransferase 34 Units/L (7-52); Albumin 3.1 g/dL (3.5-5.7); Albumin/Globulin Ratio 0.8 (1.1-2.2); Alkaline Phosphatase 52 Units/L (34-104); Aspartate Amino Transferase 8 Units/L (13-39); BUN/Creatinine Ratio 42 (6-26); Bilirubin,Total 0.6 mg/dL (0.3-1.0); Blood Urea Nitrogen 39 mg/dL (6-20); Calcium 8.8 mg/dL (8.6-10.3); Carbon Dioxide 29 mEq/L (23-29); Chloride 98 mEq/L (98-107); Globulin 3.7 g/dL (2.4-3.5); Glucose 203 mg/dL (70-105); Osmolality,Calculated 299 (280-300); Potassium 4.3 mEq/L (3.5-5.1); Sodium 137 mEq/L (136-145); Total Protein 6.8 g/dL (6.4-8.9); eGFR For African Americans > 60 (> 60); eGFR For Non-African Americans > 60 (> 60)
[2020-02-29] MEDS: Artificial Tears SOLN 15 ML BOTTLE BOTH EYES SCH (07:43)
[2020-02-29] MEDS: FentaNYL (PF) 2,500 MCG/50 ML IV.SOLN IVC SCH (07:43)
[2020-02-29] MEDS: Chlorhexidine Rinse 15 ML MOUTHWASH MM SCH (07:47)
[2020-02-29] MEDS: Furosemide 40 MG/4 ML VIAL IVP SCH (07:47)
[2020-02-29] MEDS: Cholecalciferol (D-3) 1,000 UNIT (25MCG) TABLET PO SCH (07:47)
[2020-02-29] MEDS: Pantoprazole 40 MG VIAL IVP SCH (07:47)
[2020-02-29] MEDS: Dexamethasone Sodium Phos/PF 10 MG/ML VIAL IVP SCH (07:48)
[2020-02-29] MEDS: Norepinephrine 4 MG/254 ML IV.SOLN IVC SCH (07:48)
[2020-02-29 10:03] VITALS: BP 124/81
[2020-02-29] MEDS: Cisatracurium 200 MG in 0.9 % Sodium Chloride 180 ML IVC SCH (10:30)
== END 2020-02-29 11:17 | disposition short-term general hospital (02) | DRG 871 ==
LOC: CDU 12:42 → EMEROOARM 12:42 → CDU 15:18 → SUATTDRO 02-16 21:43 → 2NENU 02-17 15:30
PROVIDERS: ADMIT Internal Medicine; ATTEND Internal Medicine